=== PATIENT | female | born 1970 | race American Indian/Alaskan Native ===

== ENCOUNTER 2016-10-26 07:43 | Emergency (ER) | payer OTHER ==
[2016-10-26 07:49] VITALS: BP 145/84
--- NOTE | 2016-10-26 08:55 | XRay Report ---
LEFT ANKLE, 3 views: History: Left ankle pain and swelling. The bones are well mineralized with normal bony contours and joint alignment. No fractures or destructive changes are noted and the adjacent soft tissues are normal. IMPRESSION: Normal study.
--- NOTE | 2016-10-26 09:30 | Emergency Department Report ---
HPI - General Chief Complaint: Extremity Injury, Lower Time Seen by Provider: 10/26/16 08:36 - HPI HPI: 35-year-old female presents today with left ankle pain since yesterday that worsened this morning. Patient denies injury or trauma. Describes her pain as a 10 out of 10 constant, sharp, aching pain. Positive for swelling. Denies numbness, weakness, paresthesias. Patient also complaining of left eye erythema and crusting in the morning 1.5 weeks. Positive for tearing. Denies injury or trauma, foreign body sensation, pain. Patient states that her vision is usually bad but there is no change in vision post symptoms. Denies fever, chills, nausea, vomiting, chest pain, shortness of breath, abdominal pain. ED Past Medical Hx - Past Medical History Previous Medical History?: No - Surgical History Past Surgical History?: No - Social History Smoking Status: Never Smoker Substance Use Type: None - Medications Home Medications: Home Medications Medication Instructions Recorded Confirmed Last Taken Type Loratadine [Claritin] 10 mg PO DAILY 10/26/16 10/26/16 10/25/16 20:00 History Naproxen [Naprosyn] 500 mg PO BID #30 tablet 10/26/16 Unknown Rx Ofloxacin 0.3% [Ocuflox] 1 - 2 drops OP Q2H #1 bottle 10/26/16 Unknown Rx ED Review of Systems ROS: Stated complaint: CHECK EYES/AND FEET CANT WALK Other details as noted in HPI Constitutional: denies: chills, fever, malaise Eyes: eye discharge, other (eye erythema). denies: eye pain, vision change ENT: denies: ear pain, throat pain, congestion Respiratory: denies: cough, shortness of breath, wheezing Cardiovascular: denies: chest pain, palpitations Endocrine: no symptoms reported Gastrointestinal: denies: abdominal pain, nausea, vomiting Musculoskeletal: joint swelling, arthralgia Skin: denies: rash Neurological: denies: headache, weakness, numbness, paresthesias Physical Exam - Physical Exam Vital Signs: Vital Signs 10/26/16 07:47 Temperature 98.3 F Pulse Rate 99 H Respiratory 18 Rate Blood Pressure 145/84 O2 Sat by Pulse 100 Oximetry Physical Exam: GENERAL: The patient is well-developed and well-nourished. Patient is in NAD. HEAD: Normocephalic. Atraumatic. EYES: Extraocular motions are intact, PERRL. Conjunctival injection noted of left eye with greenish yellow crusting. No abrasion or foreign body noted. EARS: External auditory canals and tympanic membranes clear; hearing grossly intact. NOSE: Normal nasal mucosa with no nasal discharge. THROAT: No erythema, swelling or exudates. NECK: Supple, nontender, without lymphadenopathy. CHEST/LUNGS: Clear to auscultation throughout. HEART/CARDIOVASCULAR: Regular rate and rhythm. ABDOMEN: Abdomen is soft, nontender. No guarding or rebound tenderness. LEFT ANKLE: Tenderness to palpation over anterior aspect of the left ankle. Limited range of motion due to pain. Normal sensation. Peripheral pulses intact. Capillary refill less than 2 seconds. ED Course Vital Signs 10/26/16 07:47 Temperature 98.3 F Pulse Rate 99 H Respiratory 18 Rate Blood Pressure 145/84 O2 Sat by Pulse 100 Oximetry ED Medical Decision Making - Lab Data Vital Signs 10/26/16 07:47 Temperature 98.3 F Pulse Rate 99 H Respiratory 18 Rate Blood Pressure 145/84 O2 Sat by Pulse 100 Oximetry - Radiology Data Radiology results: report reviewed Left ankle x-ray: The littlejohn are well mineralized with normal bony contours and joint alignment. No fracture or destructive changes are noted in the adjacent soft tissues are normal. - Medical Decision Making 45-year-old female presents today with left ankle pain since yesterday and left eye redness and crusting 1.5 weeks. Her left ankle x-ray reveals no fracture or dislocation. Patient has been recommended to rest, ice, elevate, compress. Patient is in no acute distress at this time. She will be discharged home and is encouraged to follow up with a primary care provider. She will be sent home on ofloxacin optic drops and naproxen and is encouraged to return to the emergency room for any worsening symptoms. Critical care attestation.: If time is entered above; I have spent that time in minutes in the direct care of this critically ill patient, excluding procedure time. ED Disposition Clinical Impression: Ankle pain Qualifiers: Laterality: left Chronicity: acute Qualified Code(s): M25.572 - Pain in left ankle and joints of left foot Conjunctivitis Qualifiers: Conjunctivitis type: acute Acute conjunctivitis type: unspecified Laterality: left Qualified Code(s): H10.32 - Unspecified acute conjunctivitis, left eye Disposition: DISCHARGED TO HOME OR SELFCARE Is pt being admited?: No Does the pt Need Aspirin: No Condition: Stable Instructions: Ankle Sprain (ED), Ankle Exercises (GEN), Arthralgia (ED), Conjunctivitis (ED) Additional Instructions: Follow up with primary care provider. Return to the emergency department if symptoms worsen. Prescriptions: Naproxen [Naprosyn] 500 mg PO BID #30 tablet Ofloxacin 0.3% [Ocuflox] 1 - 2 drops OP Q2H #1 bottle Referrals: PRIMARY CARE, [Primary Care Provider] - 3-5 Days IVANA SIMS MD [Staff Physician] - 3-5 Days Forms: Work/School Release Form(ED) Time of Disposition: 09:34
== END 2016-10-26 09:52 | disposition home or self-care (01) ==
LOC: ED 07:43
DX: M25.572 Pain in left ankle and joints of left foot (principal); H10.32 Unspecified acute conjunctivitis, left eye
CPT/HCPCS: 99284